=== PATIENT | female | born 1960 | race Caucasian/White ===

== ENCOUNTER → 2016-04-15 | Outpatient (CLI) | payer OTHER ==
[~2016-04-15] MED LIST: COZAAR25 MG PO; HYDROCHLOROTH12.5 M3 PO; NEXIUM20 MG PO; PROZAC20 MG PO; RANITIDINE HCL300 M1 PO; REGLAN10 MG PO; TYLENOL EXTRA500 MG PO; XANAX0.25 MG PO; ZOFRAN4 MG PO
== END | disposition home or self-care (01) ==
LOC: CDC 14:58
DX: Z01.810 Encounter for preprocedural cardiovascular examination (principal); N95.0 Postmenopausal bleeding; N84.0 Polyp of corpus uteri
CPT/HCPCS: 93000

== ENCOUNTER 2016-04-20 04:57 | Day surgery (SDC) | payer OTHER ==
[~2016-04-20] VITALS: Ht 160 cm; Wt 80.3 kg
[2016-04-20 05:54] VITALS: BP 171/89
[2016-04-20 09:23] VITALS: BP 158/81
[2016-04-20 10:16] VITALS: BP 159/83
== END 2016-04-20 10:22 | disposition home or self-care (01) ==
LOC: SDC
DX: N95.0 Postmenopausal bleeding (principal); N84.0 Polyp of corpus uteri; D25.0 Submucous leiomyoma of uterus; I10 Essential (primary) hypertension; G40.909 Epilepsy, unspecified, not intractable, without status epilepticus; Z87.891 Personal history of nicotine dependence; M19.90 Unspecified osteoarthritis, unspecified site
CPT/HCPCS: 88305; J1100; J1885; J2175; J2250; J2405; J2765; J3010